=== PATIENT | male | born 1985 | race Two or more races ===

== ENCOUNTER → 2019-10-31 | Outpatient (CLI) | payer OTHER, SELFPAY ==
[2019-10-31 13:26] VITALS: BMI 28.2
== END | disposition home or self-care (01) ==
LOC: LABSPEC 17:47
PROVIDERS: Referring Provider Physician Assistant Surgical; Visit Provider Physician Assistant Surgical
DX: Z20.828 Contact with and (suspected) exposure to other viral communicable diseases (principal)
CPT/HCPCS: 87635; G2023; U0003